=== PATIENT | male | born 1950 | race Caucasian/White ===

== ENCOUNTER → 2022-11-19 | Outpatient (CLI) | payer MEDICARE ==
[~2022-11-19] MED LIST: ASPI325 PO; ATEN25; ATEN25 PO; ATOR20 PO; Antivert25 MG PO; Ativan1 MG PO; CLOP75 PO; DOXY100 PO; FLUSAL2505; HYDCHL12.5 PO; LANS30EC PO; OMEP20ER; Prevacid Soluta30 MG; Ventolin Soln3 ML
== END | disposition home or self-care (01) ==
LOC: LAB SHORT 06:00 → LAB 06:00
DX: K21.9 Gastro-esophageal reflux disease without esophagitis (principal)
CPT/HCPCS: 87338

== ENCOUNTER 2023-04-27 11:19 | Day surgery (SDC) | payer MEDICARE, OTHER ==
[~2023-04-27] VITALS: Ht 172.7 cm; Wt 75.8 kg
[2023-04-27] MEDS ORDERED: ASPI81CH PO (11:47)
[2023-04-27] MEDS ORDERED: FLUT1DIS2 INH (11:47)
[2023-04-27] MEDS ORDERED: FAMO10 PO (11:47)
[2023-04-27 14:49] VITALS: BP 142/76
== END 2023-04-27 13:00 | disposition home or self-care (01) ==
LOC: ORSCSDS 11:19
PROVIDERS: Internal Medicine Gastroenterology
PROC: 0DB58ZX Excision of Esophagus, Via Natural or Artificial Opening Endoscopic, Diagnostic (ICD-10-PCS; principal; 2023-04-27 13:00)
DX: K21.00 Gastro-esophageal reflux disease with esophagitis, without bleeding (principal); J45.909 Unspecified asthma, uncomplicated; I10 Essential (primary) hypertension; Z72.0 Tobacco use; Z79.899 Other long term (current) drug therapy
CPT/HCPCS: 88305; J2704; J7120

== ENCOUNTER 2023-10-13 19:38 | Inpatient (IN) | payer MEDICARE, OTHER ==
[~2023-10-13] VITALS: Ht 172.7 cm; Wt 74.0 kg
[~2023-10-13 19:38] MED LIST changes: +ASPI81CH PO; +FAMO10 PO; +FLUT1DIS2 INH
[2023-10-13 20:25] LABS: Base Excess Venous 3.9 mmol/L; Bicarbonate Venous 26.9 mmol/L (24.0-30.0); PCO2 Venous 43.1 mmHg (38-42); pH Blood Venous 7.43 (7.34-7.37)
[2023-10-13 20:43] LABS: Hematocrit 44.8 % (37.0-53.0); Mean Corpuscular HGB 31.1 pg (26.0-34.0); Mean Corpuscular HGB Conc 35.7 g/dL (31.5-36.5); Mean Corpuscular Volume 87 fL (80-100); Mean Platelet Volume 9.7 fL (9.1-12.4); Platelet Count 211 K/mm3 (150-400); RDW Standard Deviation 38.8 fL (35.1-46.3); Red Blood Cell Count 5.15 M/mm3 (4.30-5.90); White Blood Cell Count 18.56 K/mm3 (4.00-11.30)
[2023-10-13 21:07] LABS: Albumin/Globulin Ratio 0.7 (0.8-1.8); Bilirubin, Total 0.7 mg/dL (0.1-1.0); Bun/Creatinine Ratio 18.2 (12.0-20.0); Calcium, Blood 8.3 mg/dL (8.5-10.1); Creatinine, Blood 1.1 mg/dL (0.60-1.20); Globulin, Blood 4.3 g/dL (2.2-4.0); Total Protein, Blood 7.3 g/dL (6.4-8.2)
[2023-10-13 21:15] LABS: BAND PERCENT MAN 15 % (0-8); BASOPHILS PERCENT MAN 0 % (0-2); EOSINOPHILS PERCENT MAN 0 % (0-6); LYMPHOCYTES ABSOLUTE MAN 0.37 K/mm3 (0.84-5.20); LYMPHOCYTES PERCENT MAN 2 % (21-46); METAMYELOCYTE ABSOLUTE MAN 0.37 K/mm3 (0.00-0.00); METAMYELOCYTE PERCENT MAN 2 % (0-0); MONOCYTES ABSOLUTE MAN 1.29 K/mm3 (0.16-1.47); MONOCYTES PERCENT MAN 7 % (4-13); MYELOCYTE ABSOLUTE MAN 0.18 K/mm3 (0.00-0.00); MYELOCYTE PERCENT MAN 1 % (0-0); NEUTROPHILS ABSOLUTE MAN 16.33 K/mm3 (1.96-9.15); SEG NEUTROPHILS PERCENT MAN 73 % (41-73); TOTAL CELLS COUNTED 100
[2023-10-13 21:21] LABS: Influenza B, PCR NEGATIVE (NEGATIVE); Resp Syncytial Virus, PCR NEGATIVE (NEGATIVE); SARS-Cov-2 (COVID-19) PCR, MMC NEGATIVE (NEGATIVE)
[2023-10-13 21:23] LABS: Influenza A, PCR POSITIVE (NEGATIVE)
[2023-10-14 05:40] LABS: BASOPHILS ABSOLUTE AUTO 0.09 K/mm3 (0.00-0.23); BASOPHILS PERCENT AUTO 0 % (0-2); Hematocrit 42.8 % (37.0-53.0); LYMPHOCYTES ABSOLUTE AUTO 0.92 K/mm3 (0.84-5.20); LYMPHOCYTES PERCENT AUTO 4 % (21-46); MONOCYTES PERCENT AUTO 6 % (4-13); Mean Corpuscular HGB 30.9 pg (26.0-34.0); Mean Corpuscular Volume 88 fL (80-100); Mean Platelet Volume 9.4 fL (9.1-12.4); Platelet Count 186 K/mm3 (150-400); RDW Coefficient Variation 12.4 % (11.7-14.2); RDW Standard Deviation 40.1 fL (35.1-46.3); Red Blood Cell Count 4.85 M/mm3 (4.30-5.90); White Blood Cell Count 21.51 K/mm3 (4.00-11.30)
[2023-10-14 05:52] LABS: Albumin, Blood 2.7 g/dL (3.4-5.0); Albumin/Globulin Ratio 0.6 (0.8-1.8); Bilirubin, Total 0.7 mg/dL (0.1-1.0); Bun/Creatinine Ratio 16.8 (12.0-20.0); Calcium, Blood 8.5 mg/dL (8.5-10.1); Creatinine, Blood 1.07 mg/dL (0.60-1.20); Globulin, Blood 4.4 g/dL (2.2-4.0); Potassium, Blood 4.2 mmol/L (3.5-5.5); Total Protein, Blood 7.1 g/dL (6.4-8.2)
[2023-10-14 06:13] LABS: EOSINOPHILS PERCENT AUTO 0 % (0-6); IMMATURE GRAN ABSOLUTE AUTO 0.15 K/mm3 (0.00-0.10); IMMATURE GRAN PERCENT AUTO 1 % (0-1); NEUTROPHILS ABSOLUTE AUTO 19.05 K/mm3 (1.96-9.15); NEUTROPHILS PERCENT AUTO 89 % (41-73)
[2023-10-14 06:30] VITALS: BP 158/74
[2023-10-14 07:15] VITALS: BP 150/66
[2023-10-14 07:30] VITALS: BP 168/75
--- NOTE | 2023-10-14 07:57 | NUR ---
Pt lying in bed, conversant without any respiratory difficulty, on room air, and spo2 95%. Lung sounds are clear. Pt has no cough. IV fluids infusing at 100cc /hour. Noted blood pressure is elevated; pt states that he did NOT take his 0530 dose of atenolol 12.5 mg per usual routine, since he was in the ED. Sitting on the side of the bed, eating breakfast with a good appetite.
--- NOTE | 2023-10-14 10:22 | NUR ---
The pt is 94% on room air. Ambulatory independently to the bathroom, without supplemental oxygen and denying any respiratory symptoms. Noted that his IV fluids were turned off; pt states that he doctor turned it off. IV saline locked at this time.
[2023-10-14 11:52] VITALS: BP 180/79
[2023-10-14 12:32] VITALS: BP 140/76
[2023-10-14] MEDS ORDERED: OSEL75CA PO (15:47)
--- NOTE | 2023-10-14 16:24 | NUR ---
Discharge instructions were reviewed with the patient and his . 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 Both were provided with a few surgical masks and asked to wear them when in the hospital and in public spaces, such as going to the pharmacy to pickling machine operator his Tamiflu prescription today. Pt's IV was removed and he dressed and was ambulatory out to private vehicle.
== END 2023-10-14 16:00 | disposition home or self-care (01) | DRG 871 ==
LOC: ER 19:38 → ERHOLD 10-14 02:50 → PCU 10-14 02:50
PROVIDERS: Emergency Medicine; Family Medicine; Student in an Organized Health Care Education/Training Program; ADMIT Internal Medicine
DX: A41.9 Sepsis, unspecified organism (principal); J10.00 Influenza due to other identified influenza virus with unspecified type of pneumonia; J96.01 Acute respiratory failure with hypoxia; E87.1 Hypo-osmolality and hyponatremia; E87.3 Alkalosis; J45.909 Unspecified asthma, uncomplicated; Z66 Do not resuscitate; I10 Essential (primary) hypertension; I25.10 Atherosclerotic heart disease of native coronary artery without angina pectoris; F17.220 Nicotine dependence, chewing tobacco, uncomplicated; E78.5 Hyperlipidemia, unspecified; K21.9 Gastro-esophageal reflux disease without esophagitis; Z79.82 Long term (current) use of aspirin; Z79.51 Long term (current) use of inhaled steroids; Z11.52 Encounter for screening for COVID-19; Z86.718 Personal history of other venous thrombosis and embolism; Z96.649 Presence of unspecified artificial hip joint; R05.9 Cough, unspecified
CPT/HCPCS: 0241U; 36415; 71046; 71260; 80053; 82803; 83605; 84484; 85025; 87040; 93005; 93010; 94640; 94664; 94760; 99285-25; A9270; J0696; J1650; J7030; Q9967

== ENCOUNTER 2024-07-07 13:14 | Observation (INO) | payer MEDICARE, OTHER ==
[~2024-07-07] VITALS: Ht 172.7 cm; Wt 75.2 kg
[~2024-07-07 13:14] MED LIST changes: +OSEL75CA PO
[2024-07-07 13:41] LABS: BASOPHILS ABSOLUTE AUTO 0.03 K/mm3 (0.00-0.23); BASOPHILS PERCENT AUTO 1 % (0-2); EOSINOPHILS ABSOLUTE AUTO 0.07 K/mm3 (0.00-0.68); EOSINOPHILS PERCENT AUTO 1 % (0-6); Hematocrit 49.1 % (37.0-53.0); Hemoglobin 16.7 g/dL (13.5-17.5); IMMATURE GRAN ABSOLUTE AUTO 0.02 K/mm3 (0.00-0.10); IMMATURE GRAN PERCENT AUTO 0 % (0-1); LYMPHOCYTES ABSOLUTE AUTO 1.34 K/mm3 (0.84-5.20); LYMPHOCYTES PERCENT AUTO 21 % (21-46); MONOCYTES PERCENT AUTO 11 % (4-13); Mean Corpuscular HGB 30.1 pg (26.0-34.0); Mean Corpuscular Volume 89 fL (80-100); Mean Platelet Volume 9.8 fL (9.1-12.4); NEUTROPHILS ABSOLUTE AUTO 4.17 K/mm3 (1.96-9.15); NEUTROPHILS PERCENT AUTO 66 % (41-73); Platelet Count 211 K/mm3 (150-400); RDW Coefficient Variation 12.7 % (11.7-14.2); RDW Standard Deviation 41.8 fL (35.1-46.3); Red Blood Cell Count 5.55 M/mm3 (4.30-5.90); White Blood Cell Count 6.33 K/mm3 (4.00-11.30)
[2024-07-07 14:06] LABS: Bilirubin, Total 0.5 mg/dL (0.1-1.0); Bun/Creatinine Ratio 15.2 (12.0-20.0); Calcium, Blood 9.5 mg/dL (8.5-10.1); Creatinine, Blood 1.12 mg/dL (0.60-1.20); Globulin, Blood 4.1 g/dL (2.2-4.0); Potassium, Blood 3.6 mmol/L (3.5-5.5); Total Protein, Blood 8.1 g/dL (6.4-8.2)
[2024-07-07] MEDS ORDERED: Aspirin 325 MG Tab PO ONE (17:30)
[2024-07-07] MEDS ORDERED: Nitroglycerin/D5W 250 ML IV SCH (18:15)
[2024-07-07] MEDS ORDERED: Heparin Sodium,Porcine/0.5 NS 500 ML IV SCH ×2 (18:25→21:55)
[2024-07-07] MEDS ORDERED: Heparin Sodium 5000 Units/ML 1ML MDV IV ONE ×2 (18:30→21:55)
[2024-07-07] MEDS ORDERED: Albuterol 2.5 MG/3 ML VIAL INH PRN (20:10)
[2024-07-07] MEDS ORDERED: Acetaminophen 325 MG TABLET PO PRN (20:10)
[2024-07-07] MEDS ORDERED: FLU VACC TS2024-25(6MOS UP)/PF 45 MCG/0.5 ML SYRINGE IM SCH (20:10)
[2024-07-07] MEDS ORDERED: NS 1,000 ML IV SCH (20:10)
[2024-07-07] MEDS ORDERED: LORazepam 1 MG Tab PO PRN (20:15)
[2024-07-07] MEDS ORDERED: Ondansetron HCl 2 MG / ML 2ML Vial IV PRN (20:15)
[2024-07-07] MEDS ORDERED: Mometasone/Formoterol MDI 100/5 mcg 13 GM INH SCH (20:30)
[2024-07-07] MEDS ORDERED: TraMADol HCl 50 MG Tab PO PRN (20:40)
[2024-07-07 21:09] LABS: Anti-Xa UFH, PHA Monitoring <0.10 IU/mL; International Normalized Ratio 1.02; Prothrombin Time Results 10.9 Sec (9.7-11.5)
[2024-07-07 22:45] VITALS: BP 163/68
[2024-07-07 23:00] VITALS: BP 160/70
[2024-07-07 23:15] VITALS: BP 133/49
[2024-07-08] VITALS (14 sets, daily range): BP systolic 115–175; BP diastolic 46–80
--- NOTE | 2024-07-08 05:24 | NUR ---
SHIFT SUMMERY PT HAS BEEN ALERT AND ORIENTED X4, INDEPENDENT AND VERY PLEASANT. HE HAS DENIED ANY CHEST PAIN OR PRESSURE OVERNIGHT. NITRO DRIP DID NOT HAVE TO BE STARTED. HEPARIN GTT IS INFUSING PER MD ORDER; SEE FLOWSHEET. 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 BP HAS BEEN WNL. AFEBRILE. OXYGEN IS 98% ON ROOM AIR W/CLEAR LUNGS BILATERALLY.
[2024-07-08 05:40] LABS: Hematocrit 46.2 % (37.0-53.0); Hemoglobin 15.6 g/dL (13.5-17.5); Mean Corpuscular HGB Conc 33.8 g/dL (31.5-36.5); Mean Corpuscular Volume 89 fL (80-100); Mean Platelet Volume 10.2 fL (9.1-12.4); Platelet Count 181 K/mm3 (150-400); RDW Coefficient Variation 12.6 % (11.7-14.2); RDW Standard Deviation 41.6 fL (35.1-46.3); White Blood Cell Count 6.01 K/mm3 (4.00-11.30)
[2024-07-08 05:58] LABS: Bun/Creatinine Ratio 16.7 (12.0-20.0); Calcium, Blood 8.5 mg/dL (8.5-10.1); Creatinine, Blood 1.02 mg/dL (0.60-1.20); Potassium, Blood 3.6 mmol/L (3.5-5.5)
[2024-07-08] MEDS ORDERED: Omeprazole 20 MG CapCR PO SCH (06:00)
[2024-07-08] MEDS ORDERED: Clarify Drug Order XX ONE (06:30)
[2024-07-08] MEDS ORDERED: HyDROXyzine HCl 25 MG Tab PO PRN (07:50)
[2024-07-08] MEDS ORDERED: HYDCHL25 PO (07:51)
[2024-07-08] MEDS ORDERED: Aspirin 81 MG Chew PO SCH (09:00)
[2024-07-08] MEDS ORDERED: Atenolol 25 MG Tab PO SCH ×3 (09:00)
[2024-07-08] MEDS ORDERED: HydroCHLOROthiazide 25 mg Tab PO SCH (09:00)
[2024-07-08] MEDS ORDERED: Famotidine 20 MG Tab PO SCH (09:00)
[2024-07-08] MEDS ORDERED: Regadenoson 0.4 MG/5 ML SYRINGE ONE (09:33)
[2024-07-08] MEDS ORDERED: Dose Adjust by Pharmacy XX STA (11:25)
[2024-07-08] MEDS ORDERED: Ezetimibe 10 MG Tab PO SCH (11:30)
[2024-07-08 12:14] LABS: CHOL/HDL RATIO 3.9; Cholesterol 197 mg/dL (50-200); HDL Cholesterol 51 mg/dL (>39); LDL/HDL RATIO 2.6; Low Density Lipoprotein Chol 132 mg/dL (0-110); Triglycerides 70 mg/dL (30-160); Very Low Density Lipoprot Chol 14 mg/dL (6-32)
[2024-07-08] MEDS ORDERED: AmLODIPine Besylate 5 MG Tab PO SCH (14:00)
[2024-07-08] MEDS ORDERED: AMLO5 PO (15:22)
[2024-07-08] MEDS ORDERED: EZET10 PO (15:22)
[2024-07-08] MEDS ORDERED: HYDHCL25 PO (15:23)
--- NOTE | 2024-07-08 15:36 | NUR ---
DISCHARGE HOME PT A&O X4. VSS. SPO2 > 92% ON RA. MONITOR SHOWING SB-SR, HR 40s-60s. ONE DAY STRESS TEST DONE TODAY. MD VILLATORO TO BEDSIDE AFTER TESTING TO DISCUSS RESULTS W/ PT. DR VILLATORO & DR MENJIVAR AGREEABLE PT CAN DISCHARGE HOME. W/ ORDER FOR BP MEDICATION PRIOR TO PT DISCHARGE & NEW HOME BP MEDICATION PRESCRIBED FOR PT. DISCHARGE INSTRUCTIONS REVIEWED W/ PT & SENT HOME W/ PT. PIVs REMOVED. PT TAKEN OUT BY WHEELCHAIR W/ BELONGINGS @ APPROX 1530.
== END 2024-07-08 15:33 | disposition home or self-care (01) ==
LOC: ER 13:14 → ICUE 13:15
PROVIDERS: Internal Medicine Cardiovascular Disease; Nurse Practitioner Acute Care; Physician Assistant; ADMIT Internal Medicine
DX: I25.118 Atherosclerotic heart disease of native coronary artery with other forms of angina pectoris (principal); I10 Essential (primary) hypertension; E78.5 Hyperlipidemia, unspecified; Z72.0 Tobacco use; Z79.899 Other long term (current) drug therapy; I35.0 Nonrheumatic aortic (valve) stenosis
CPT/HCPCS: 36415; 71046; 78452; 80048; 80053; 80061; 84484; 85025; 85027; 85520; 85610; 85730; 93005; 93010; 93017; 93306; 94640; 94664; 96365; 96366; 96375; 96376; 99285-25; A9270; A9500; G0378; J1644; J2785; J7030